=== PATIENT | female | born 1980 | race Asian ===

== ENCOUNTER 2016-04-08 19:38 | Emergency (ER) | payer OTHER ==
[2016-04-08] MEDS ORDERED: ACETAMINOPHEN 325 MG TAB PO ONE (20:22)
[2016-04-08] MEDS ORDERED: IBUPROFEN 200 MG TAB PO ONE (20:22)
--- NOTE | 2016-04-08 20:36 | UCPHY ---
H & P Patient Type: Established Chief Complaint Nursing Narrative: body aches, fever, sore throat and right ear pain since yesterday, lots of family members are sick Time Seen by Provider: 04/08/16 20:22 HPI/ROS: CHIEF COMPLAINT: Body aches, fever, ear pain, sore throat HISTORY OF PRESENT ILLNESS: 36-year-old female reports that yesterday she developed a fever associated with a mild sore throat and dry cough. Today her temperature has been significantly higher, she has developed body aches, increasing ear pain, back pain, headache. Also reports a dry cough. She does have a history of asthma but has not experienced any chest pain or shortness of breath. No vomiting or diarrhea. Other family members have been sick including a son who was diagnosed with otitis media and sinusitis and placed on amoxicillin. Patient did not receive an influenza vaccination this year. Patient took Tylenol this morning for her fever and Nyquil flu at 2 o'clock this afternoon for her symptoms. REVIEW OF SYSTEMS: Aside from elements discussed in the HPI, a comprehensive 10-point review of systems was reviewed and is negative. PAST MEDICAL HISTORY: Asthma. SOCIAL HISTORY: . Nonsmoker. VITAL SIGNS: see nurse's notes. Tachycardic to 110. Temperature 38.4. GENERAL: Well-developed, well-nourished, shivering. Reports feeling cold. HEENT: Atraumatic Eyes: PERRL, EOMI, no conjunctival injection. Ears: Bilateral erythematous, bulging, bullous lesions on the right tympanic membrane. Nose: No discharge. Mouth: moist mucous membranes. Pharynx: Mild erythema, no exudates, no swelling, no abscess. Uvula is midline. NECK: Supple, no adenopathy, no meningismus, no tenderness. Negative Kernig's and Brudzinski's. LUNGS: Clear to auscultation bilaterally, no wheezes, rhonchi or rales. CARDIAC: tachycardic but regular. no rubs, murmurs or gallops. ABDOMEN: Soft, nontender, bowel sounds normal. BACK: No CVA tenderness. EXTREMITIES: Normal, no edema, FROM. NEURO: Alert and oriented, grossly nonfocal. SKIN: Warm and dry, no rash. PSYCHIATRIC: Normal mentation, no agitation. - Personal History LMP (Females 10-55): 22-28 Days Ago - Medical/Surgical History Hx Asthma: Yes Hx Chronic Respiratory Disease: No Hx Diabetes: No Hx Cardiac Disease: No Hx Renal Disease: No Hx Cirrhosis: No Hx Alcoholism: No Hx HIV/AIDS: No Hx Splenectomy or Spleen Trauma: No Other PMH: GESTATIONAL DIABETES - Family History Significant Family History: No pertinent family hx - Social History Smoking Status: Former smoker Constitutional: Initial Vital Signs Temperature (C) 38.4 C H 04/08/16 20:16 Heart Rate 110 H 04/08/16 20:16 Respiratory Rate 20 04/08/16 20:16 Blood Pressure 148/74 H 04/08/16 20:16 O2 Sat (%) 100 04/08/16 20:16 O2 Delivery Mode Room Air Allergies/Adverse Reactions: No Known Allergies Allergy (Verified 04/08/16 20:15) Home Medications: Medication Instructions Recorded AZITHROMYCIN [Z-PACK] 250 - 500 mg PO DAILY #6 tab 04/08/16 Albuterol [Proventil Neb] 04/08/16 Fluticasone/Salmeter 100/50Mcg 04/08/16 [Advair 100/50 (*)] Oseltamivir Phosphate [Tamiflu 75 75 mg PO BID #10 cap 04/08/16 mg (*)] Singulair 10 mg (*) 04/08/16 Medical Decision Making ED Course/Re-evaluation: Influenza swab ordered. Patient received Tylenol and ibuprofen for her fever and tachycardia. Influenza is positive. Patient was given Tamiflu. 1st dose in the emergency department. 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 Close follow-up if not improving as expected. Differential Diagnosis: Differential diagnosis for fever in adults was considered including but not limited to otitis media, pneumonia, urinary tract infection, viral syndrome, influenza, strep throat, tonsillitis, peritonsillar abscess. - Data Points Medications Given: Discontinued Medications Acetaminophen (Tylenol) 650 mg PO EDNOW ONE Stop: 04/08/16 20:23 Last Admin: 04/08/16 20:41 Dose: 650 mg Ibuprofen (Motrin) 600 mg PO EDNOW ONE Stop: 04/08/16 20:23 Last Admin: 04/08/16 20:41 Dose: 600 mg Oseltamivir Phosphate (Tamiflu) 75 mg PO EDNOW ONE Stop: 04/08/16 20:41 Last Admin: 04/08/16 20:54 Dose: 75 mg Departure - Departure Disposition: Home, Routine, Self-Care Clinical Impression: Influenza A, Fever Condition: Good Instructions: Influenza (ED), Oseltamivir (By mouth) Additional Instructions: Your influenza a is positive. You have been given Tamiflu. Please take this as directed for the next 5 days. Most important part of treatment is to control your fever drink plenty of fluids. Adult Pain & Fever Control: We recommend Acetaminophen (Tylenol) and Ibuprofen (Motrin,Advil) for pain and fever control. When fever is high or pain severe, both drugs can be used at the same time, but at different intervals. Please note the time differences. Your dose is: Acetaminophen 650mg every 4 to 6 hours Ibuprofen 600 mg every 6-8 hours with food Drink plenty of fluid. Please follow up with her primary care physician if your worsening, especially if he develops shortness of breath, increased respiratory rate, wheezing, cough productive of sputum, or other concerns. Please take the antibiotic, azithromycin, as directed. Referrals: RODNEY WINCHESTER [Primary Care Provider] - As per Instructions Prescriptions: Oseltamivir Phosphate [Tamiflu 75 mg (*)] 75 mg PO BID #10 cap AZITHROMYCIN [Z-PACK] 250 - 500 mg PO DAILY #6 tab - PQRS PQRS Measurement: Not applicable
[2016-04-08] MEDS ORDERED: OSELTAMIVIR PHOSPHATE 75 MG CAP PO ONE (20:40)
[2016-04-08 21:29] VITALS: BP 149/87; PULSE 104; RESP 14; TEMP 99.9; O2SAT 93
== END 2016-04-08 21:43 | disposition home or self-care (01) ==
LOC: CED 19:38
DX: J09.X2 Influenza due to identified novel influenza A virus with other respiratory manifestations (principal); J45.909 Unspecified asthma, uncomplicated
CPT/HCPCS: 87400-PO; 87880-PO; 99214-PO; G0463-PO